=== PATIENT | female | born 2000 | race Caucasian/White ===

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

== ENCOUNTER → 2020-01-21 | Outpatient (REF) | payer BC ==
[~2020-01-21] MED LIST: ACET-839 PO; AMOX500C PO
== END ==
LOC: M LAB REF 17:47
PROVIDERS: ATTEND Physician Assistant
DX: J02.9 Acute pharyngitis, unspecified (principal)

== ENCOUNTER 2020-01-22 15:49 | Emergency (ER) | payer BC ==
[~2020-01-22] VITALS: Ht 162.6 cm; Wt 56.8 kg
[2020-01-22 16:09] VITALS: BP 117/65
[2020-01-22] MEDS ORDERED: ACET-839 PO (16:09)
[2020-01-22] MEDS: AMOXICILLIN 500 MG CAP PO ONE (16:16)
[2020-01-22] MEDS ORDERED: AMOX500C PO (16:21)
== END 2020-01-22 16:30 | disposition home or self-care (01) ==
LOC: M ED 15:49
DX: J02.0 Streptococcal pharyngitis (principal); Z79.2 Long term (current) use of antibiotics